=== PATIENT | male | born 1945 | race Hispanic/Latino ===

== ENCOUNTER 2019-08-12 23:23 | Inpatient (IN) | payer OTHER, MEDICAID ==
[~2019-08-12] VITALS: Ht 172.7 cm; Wt 90.7 kg
[2019-08-12] MEDS ORDERED: ELIQUIS2.5 MG PO (23:28)
[2019-08-12 23:35] VITALS: BP 156/74
--- NOTE | 2019-08-12 23:47 | Emergency Room Report ---
History of Present Illness General Chief Complaint: Chest Pain Source: Patient Present Illness HPI Is a 74-year-old male with history of CAD and CHF. He presents with complaint of chest pain. Onset of pain pressure is sharp-like in his left chest area. No radiation. No nausea no vomiting. Does feel short of breath. He was recently admitted and discharged from [place] last week for chest pain and CHF. He said that he had a stress test was negative. EMS gave him nitroglycerin and aspirin. He felt better after it. Denies any other complaint. No fever chills. Worse with exertion. Better with rest. Allergies: Coded Allergies: No Known Allergies (Unverified , 08/12/19) Patient History Past Medical History: see triage record, old chart reviewed, CAD, CHF Past Surgical History: other Pertinent Family History: none Social History: Denies: smoking Immunizations: other Reviewed Nursing Documentation: PMH: Agreed; PSxH: Agreed Nursing Documentation-PMH Past Medical History: No History, Except For Hx Hypertension: Yes Hx Diabetes: Yes Review of Systems Eye: Denies: eye pain, blurred vision ENT: Denies: ear pain, nose congestion, throat swelling Respiratory: Reports: shortness of breath; Denies: cough Cardiovascular: Reports: chest pain; Denies: palpitations Gastrointestinal: Denies: abdominal pain, diarrhea, nausea, vomiting Musculoskeletal: Denies: back pain, joint pain Skin: Denies: rash Neurological: Denies: headache, numbness Endocrine: Denies: increased thirst, increased urine Hematologic/Lymphatic: Denies: easy bruising All Other Systems: negative except mentioned in HPI Physical Exam Vital Signs Date Time Temp Pulse Resp B/P (MAP) Pulse Ox O2 Delivery O2 Flow Rate FiO2 08/12/19 23:23 98.4 86 18 156/74 (101) 100 Room Air Vitals with high blood pressure Sp02 EP Interpretation: reviewed, normal General Appearance: well appearing, no apparent distress, alert Head: normocephalic, atraumatic Eyes: bilateral eye PERRL, bilateral eye EOMI ENT: hearing grossly normal, normal pharynx Neck: full range of motion, supple, no meningismus Respiratory: chest non-tender, lungs clear, normal breath sounds Cardiovascular #1: regular rate, rhythm, no murmur Gastrointestinal: normal bowel sounds, non tender, no mass, no organomegaly, no bruit, non-distended Musculoskeletal: back normal, normal range of motion, other - 1+ pitting edema Psychiatric: mood/affect normal Procedures Critical Care Time Critical Care Time Critical care is mandated in this patient who presented with severe anemia requiring blood transfusion. Patient require my urgent intervention to attenuate the risks of metabolic collapse which may lead to cardiovascular collapse and . Critical care time is 35 minutes excluding any reportable procedure. Critical care time included evaluation, multiple reevaluation, looking at old charts, interpreting laboratory and diagnostic data, discussing case with patient and family and consultants, and charting. Medical Decision Making Diagnostic Impression: Primary Impression: Chest pain Qualified Codes: R07.9 - Chest pain, unspecified Additional Impressions: Acute exacerbation of CHF (congestive heart failure) Qualified Codes: I50.9 - Heart failure, unspecified Anemia Qualified Codes: D64.9 - Anemia, unspecified ER Course Patient presents with chest pain shortness of breath. He has CHF exacerbation. His pain and shortness of breath may be secondary to anemia also. First set of troponin negative. His BNP is elevated. Patient has multiple risk factor. He is pain-free at rest. I discussed the case with Dr. Harpreet Ellis who accepted the patient for transfer to [facility]. Unfortunately, patient unable to be transferred to [place] in a timely manner. Will admit the patient here and start blood transfusion. I discussed the case with Dr. Grove who will admit. EKG Diagnostic Results Rate: normal Rhythm: NSR ST Segments: other - Right bundle branch block Rhythm Strip Diag. Results EP Interpretation: yes Rate: 79 Rhythm: NSR, no PVC's, no ectopy Chest X-Ray Diagnostic Results Chest X-Ray Diagnostic Results : Chest X-Ray Ordered: Yes # of Views/Limited/Complete: 1 View Indication: Chest Pain EP Interpretation: Yes Interpretation: no consolidation, no effusion, no pneumothorax, other - CM Impression: No acute disease Electronically Signed by: Getachew Conte MD Last Vital Signs Date Time Temp Pulse Resp B/P (MAP) Pulse Ox O2 Delivery O2 Flow Rate FiO2 08/12/19 23:23 98.4 86 18 156/74 (101) 100 Room Air Status: improved Disposition: ADMITTED INPATIENT Condition: Serious Getachew Conte MD Aug 12, 2019 23:47
[2019-08-13 00:06] LABS: HEMATOCRIT 18.6 % (42.0-52.0); MEAN CORPUSCULAR VOLUME 90 FL (80-99); PLATELET COUNT 391 K/UL (150-450); RED BLOOD COUNT 2.07 M/UL (4.70-6.10); RED CELL DISTRIBUTION WIDTH 17.3 % (11.6-14.8); WHITE BLOOD COUNT 11.5 K/UL (4.8-10.8)
[2019-08-13 00:18] LABS: ANION GAP 8 mmol/L (5-15); BLOOD UREA NITROGEN 102 mg/dL (7-18); CALCIUM 8.1 MG/DL (8.5-10.1); CARBON DIOXIDE 28 MMOL/L (21-32); CHLORIDE 98 MMOL/L (98-107); CREATININE 5.6 MG/DL (0.55-1.30); POTASSIUM 3.8 MMOL/L (3.5-5.1); SODIUM 134 MMOL/L (136-145)
[2019-08-13 00:19] LABS: HEMOGLOBIN 6.4 G/DL (14.2-18.0)
[2019-08-13 00:29] LABS: ALANINE AMINOTRANSFERASE 37 U/L (12-78); ALBUMIN 3.1 G/DL (3.4-5.0); ALBUMIN/GLOBULIN RATIO 0.9 (1.0-2.7); ALKALINE PHOSPHATASE 44 U/L (46-116); ASPARTATE AMINO TRANSFERASE 48 U/L (15-37); BILIRUBIN,TOTAL 0.3 MG/DL (0.2-1.0)
--- NOTE | 2019-08-13 00:37 | Diagnostic Imaging Report ---
EXAM: XR Chest, 1 View CLINICAL HISTORY: SOB TECHNIQUE: Frontal view of the chest. COMPARISON: 11/15/12 FINDINGS: Study limited to a single portable AP projection. Borderline to mild cardiomegaly. Negative for focal parenchymal consolidation, pneumothorax or pleural fluid collections.
[2019-08-13 00:50] LABS: APPEARANCE,URINE CLEAR; BILIRUBIN, URINE NEGATIVE (NEGATIVE); COLOR,URINE PALE YELLOW; GLUCOSE, URINE (UA) 2+ (NEGATIVE); KETONES,URINE NEGATIVE (NEGATIVE); LEUKOCYTE ESTERASE ,URINE NEGATIVE (NEGATIVE); NITRITE,URINE NEGATIVE (NEGATIVE); PH,URINE 5 (4.5-8.0); PROTEIN,URINE 4+ (NEGATIVE); UROBILINOGEN,URINE NORMAL MG/DL (0.0-1.0)
[2019-08-13] MEDS ORDERED: ALLOPURINOL100 M1 ORAL (00:56)
[2019-08-13] MEDS ORDERED: OMEPRAZOLE40 M1 ORAL (00:56)
[2019-08-13] MEDS ORDERED: GLIMEPIRIDE4 MG ORAL (00:56)
[2019-08-13] MEDS ORDERED: LIPITOR10 MG ORAL (00:56)
[2019-08-13] MEDS ORDERED: AMLODIPINE BESYL5 MG ORAL (00:56)
[2019-08-13] MEDS ORDERED: HYDRALAZINE HCL25 M1 ORAL (00:56)
[2019-08-13] MEDS ORDERED: FUROSEMIDE80 M1 ORAL (00:56)
[2019-08-13] MEDS ORDERED: DIPHENHYDRAMINE25 M1 ORAL (00:56)
[2019-08-13] MEDS ORDERED: VASCEPA1 GM PO (00:56)
[2019-08-13] MEDS ORDERED: ASPIRIN EC81 MG ORAL (00:56)
[2019-08-13] MEDS ORDERED: DOXAZOSIN MESYLA4 MG ORAL (00:56)
[2019-08-13] MEDS ORDERED: FERROUS SULFAT325 MG ORAL (00:56)
[2019-08-13] MEDS ORDERED: GABAPENTIN100 MG ORAL (00:56)
[2019-08-13] MEDS ORDERED: FENOFIBRATE134 M1 ORAL (00:56)
[2019-08-13] MEDS ORDERED: METOPROLOL SUC100 MG ORAL (00:56)
[2019-08-13 01:12] VITALS: BP 146/78
[2019-08-13 02:32] VITALS: BP 135/70
[2019-08-13 03:17] VITALS: BP 118/58
[2019-08-13 04:15] VITALS: BP 125/58
[2019-08-13 04:50] VITALS: BP 128/59
[2019-08-13] MEDS ORDERED: LANTUS5 UNITS SUBQ (05:27)
[2019-08-13] MEDS ORDERED: LORazepam Inj 2mg/ml 1ml IV PRN (07:00)
[2019-08-13] MEDS ORDERED: Morphine Sulfate 2mg/ml Inj(IV/IM USE ONLY) IVP PRN (07:00)
[2019-08-13 08:00] VITALS: BP 145/69
[2019-08-13] MEDS ORDERED: Allopurinol 100mg Tab ORAL SCH (09:00)
[2019-08-13] MEDS ORDERED: HydrALAZINE 25mg tab ORAL SCH (09:00)
[2019-08-13] MEDS ORDERED: Metoprolol Succinate XL 100mg tab ORAL SCH (09:00)
[2019-08-13] MEDS ORDERED: NovoLOG Insulin Flexpen SUBQ SCH (11:30)
--- NOTE | 2019-08-13 15:00 | History and Physical Report ---
DATE OF ADMISSION: 08/13/2019 TIME SEEN: 8 a.m. MENTAL RETARDATION AIDE: 1. Urszula Paula M.D. 2. Eitan Deutsch M.D. 3. Tulio Angeles M.D. CHIEF COMPLAINT: Chest pain and renal failure. BRIEF HISTORY: This is a 74-year-old male, who lives at home, who presents with one-day increased chest pain, was twitching like. He was slightly weak. No loss of consciousness. No shortness of breath. It radiated to left arm. The patient came to [facility], diagnosed with the above. Also anemia of 6.4 and renal failure, admitted to telemetry for further care. Currently, calm, in bed. No complaint otherwise. REVIEW OF SYSTEMS: Slight chest pain. No shortness of breath. No nausea, vomiting, or diarrhea. PAST MEDICAL HISTORY: Includes CHF, renal failure, AFib, and diabetes. PAST SURGICAL HISTORY: None. ALLERGIES: Denies. MEDICATIONS: Include zolpidem, insulin, allopurinol, amlodipine, pantoprazole, hydralazine, morphine, Zofran, and lorazepam. SOCIAL HISTORY: No smoking. No alcohol. No intravenous drug abuse. FAMILY HISTORY: Noncontributory. PHYSICAL EXAMINATION: GENERAL: Calm in bed, oriented x2, in no acute distress. VITAL SIGNS: Temperature is 97 degrees, pulse 66, respirations 18, and blood pressure 120/59. CARDIOVASCULAR: No murmur. LUNGS: Distant and clear. ABDOMEN: Bowel sounds positive. Soft, nontender, and nondistended. EXTREMITIES: Show no cyanosis, clubbing, or edema. NEUROLOGIC: The patient moves all extremities, slightly weak. LABORATORY AND DIAGNOSTIC DATA: Labs at this time show white count 11.5, H and H of 6.4/18, and platelets 391,000. BMP shows sodium 134, BUN and creatinine 102/5.6. Glucose 189. Troponin 0.018. BNP is 2438. Albumin 3.1. Urinalysis, 4+ protein, 2+ glucose. ASSESSMENT: 1. Chest pain. 2. Anemia. 3. Renal failure. 4. Congestive heart failure. 5. Diabetes. 6. Atrial fibrillation. 7. Malnutrition. PLAN: 1. Transfuse as needed. 2. Pain control. 3. Nephrology followup. 4. Blood pressure and blood sugar control. 5. Dietary followup. 6. PT and dietary evaluation. 7. CBC and BMP in the morning. 8. Continue to follow the patient. Po Grove D.O. DR: CANDY JOB#: [id number] CC:
[2019-08-13] MEDS ORDERED: Miralax 17gm pkt ORAL PRN (21:00)
[2019-08-13] MEDS ORDERED: Zolpidem 5mg tab ORAL PRN (21:00)
--- NOTE | 2019-08-14 14:06 | Discharge Summary ---
Discharge Summary Discharge Summary _ DATE OF ADMISSION: 08/13/2019 DATE OF DISCHARGE: 08/13/2019 DISCHARGED BY: REASON FOR ADMISSION: 74 years old male with past medical history of coronary artery disease, hypertension, diabetes mellitus, and congestive heart failure , presented with complaint of chest pain with associated shortness of breath.. Patient reported pressure-like sharp pain in left chest area. No radiation. Per patient, symptoms worse with exertion and better with rest. No nausea or vomiting. Patient was recently hospitalized at [facility] for chest pain and congestive heart failure. According to patient stress test was negative. Paramedics gave patient nitroglycerin and aspirin. Patient felt better afterwards. Upon evaluation vital signs were stable. Laboratory work-up revealed mild leukocytosis with WBC 11.5 , hemoglobin 6.4, hematocrit 18.6, blood count 391. Troponin negative. Pro BNP 2438. BUN 102, creatinine 5.6. Glucose 189 . Calcium 8.1 . Albumin 3.1 . Urinalysis revealed no evidence of urinary tract infection , +4 protein, +2 glucose. EKG revealed sinus rhythm, no acute ischemic changes. Chest x-ray revealed cardiomegaly , but no acute cardiopulmonary pathology. Chest pain with shortness of breath were possibly due to acute anemia as per ED physician. Case was discussed with Dr. Harpreet Ellis, who accepted patient for transfer to [facility]. Patient was unable to be transferred to [facility] in timely manner. Patient subsequently admitted to telemetry floor and started on the blood transfusion. HOSPITAL COURSE: Patient admitted to telemetry floor. Home medication resumed. Patient received 1 dose of diuretics . Pain management was addressed as needed. Patient was on beta-nancy, hydralazine and calcium channel nancy for blood pressure control. Telemetry was noted with atrial fibrillation with controlled ventricular response with bundle branch block . Patient spontaneously converted to sinus rhythm. Nephrology consult was requested due to acute renal failure. Dietary evaluation was requested. Fall precaution maintained. Physical therapy evaluation was requested. Bed became available at [facility]. Patient subsequently was transferred via ambulance for further evaluation and management as per insurance . FINAL DIAGNOSES: Chest pain Acute anemia requiring blood transfusion Renal failure Congestive heart failure Diabetes mellitus Atrial fibrillation- spontaneously converted to sinus rhythm Malnutrition DISCHARGE MEDICATIONS: See Medication Reconciliation list. DISCHARGE INSTRUCTIONS: Patient was transferred to [facility] as per insurance. I have been assigned to dictate discharge summary for this account. I was not involved in the patient's management. Jeniffer Rivera NP Aug 14, 2019 14:06
== END 2019-08-13 08:57 | disposition short-term general hospital (02) | DRG 812 ==
LOC: EDBD 23:23 → EMR 23:50 → 2E 08-13 03:00 → EDBEDREQ 08-13 03:07
DX: D64.9 Anemia, unspecified (principal); N17.9 Acute kidney failure, unspecified; I13.0 Hypertensive heart and chronic kidney disease with heart failure and stage 1 through stage 4 chronic kidney disease, or unspecified chronic kidney disease; E46 Unspecified protein-calorie malnutrition; E11.22 Type 2 diabetes mellitus with diabetic chronic kidney disease; N18.9 Chronic kidney disease, unspecified; I50.9 Heart failure, unspecified; I48.91 Unspecified atrial fibrillation; I25.10 Atherosclerotic heart disease of native coronary artery without angina pectoris; Z68.30 Body mass index [BMI] 30.0-30.9, adult
CPT/HCPCS: 36415; 71045; 80053; 81003; 83880; 84484; 85007; 85025; 86850; 86900; 86901; 86920; 93005; 96374; 99291; J1815

== ENCOUNTER 2020-04-20 01:38 | Emergency (ER) | payer OTHER, MEDICAID ==
[~2020-04-20] VITALS: Ht 172.7 cm; Wt 68.0 kg
[~2020-04-20 01:38] MED LIST: ALLOPURINOL100 M1 ORAL; AMLODIPINE BESYL5 MG ORAL; ASPIRIN EC81 MG ORAL; DIPHENHYDRAMINE25 M1 ORAL; DOXAZOSIN MESYLA4 MG ORAL; ELIQUIS2.5 MG PO; FENOFIBRATE134 M1 ORAL; FERROUS SULFAT325 MG ORAL; FUROSEMIDE80 M1 ORAL; GABAPENTIN100 MG ORAL; GLIMEPIRIDE4 MG ORAL; HYDRALAZINE HCL25 M1 ORAL; LANTUS5 UNITS SUBQ; LIPITOR10 MG ORAL; METOPROLOL SUC100 MG ORAL; OMEPRAZOLE40 M1 ORAL; VASCEPA1 GM PO
[2020-04-20] MEDS ORDERED: ELIQUIS2.5 MG PO (01:45)
--- NOTE | 2020-04-20 01:47 | Emergency Room Report ---
History of Present Illness General Chief Complaint: Male Urogenital Problems Source: Patient Present Illness HPI This is a 74-year-old male with a history of renal failure on hemodialysis. His normal dialysis days are Wednesday, Wednesday, and Wednesday. He had dialysis done on because today he had a left arm AV fistula placed. He presents with chief complaint of urinary retention. Ever since his surgery, he has not been able to urinate. He said he felt pressure and pain. He normally able to urinate even on dialysis. He denies any fever chills but no nausea no vomiting. No fever chills. Denies any other complaint. He did get general anesthesia today. Allergies: Coded Allergies: No Known Allergies (Unverified , 08/12/19) COVID-19 Screening Contact w/high risk pt: No Experienced COVID-19 symptoms?: No COVID-19 Testing performed SECOND BUTLER: No Patient History Past Medical History: see triage record, old chart reviewed, HTN, renal disease , dialysis Past Surgical History: other Pertinent Family History: none Social History: Denies: smoking Immunizations: other Reviewed Nursing Documentation: PMH: Agreed; PSxH: Agreed Nursing Documentation-PMH Past Medical History: No History, Except For Hx Cardiac Problems: Yes - esrd Hx Hypertension: Yes Hx Diabetes: Yes Hx Cancer: No Hx Gastrointestinal Problems: No Hx Neurological Problems: No Review of Systems Eye: Denies: eye pain, blurred vision ENT: Denies: ear pain, nose congestion, throat swelling Respiratory: Denies: cough, shortness of breath Cardiovascular: Denies: chest pain, palpitations Gastrointestinal: Denies: abdominal pain, diarrhea, nausea, vomiting Genitourinary: Reports: retention Musculoskeletal: Denies: back pain, joint pain Skin: Denies: rash Neurological: Denies: headache, numbness Endocrine: Denies: increased thirst, increased urine Hematologic/Lymphatic: Denies: easy bruising All Other Systems: negative except mentioned in HPI Physical Exam Vital Signs Date Time Temp Pulse Resp B/P (MAP) Pulse Ox O2 Delivery O2 Flow Rate FiO2 04/20/20 01:41 97.9 75 18 182/78 (112) 94 Room Air Vitals with high blood pressure Sp02 EP Interpretation: reviewed, normal General Appearance: well appearing, no apparent distress, alert Head: normocephalic, atraumatic Eyes: bilateral eye PERRL, bilateral eye EOMI ENT: hearing grossly normal, normal pharynx Neck: full range of motion, supple, no meningismus Respiratory: chest non-tender, lungs clear, normal breath sounds Cardiovascular #1: regular rate, rhythm, no murmur Gastrointestinal: normal bowel sounds, non tender, no mass, no organomegaly, no bruit, non-distended, other - distended bladder Musculoskeletal: back normal, normal range of motion, gait/station normal Psychiatric: mood/affect normal Medical Decision Making Diagnostic Impression: Primary Impression: Acute urinary retention Additional Impression: Hypertension Qualified Codes: I10 - Essential (primary) hypertension ER Course Presents with acute urinary retention. Is probably secondary to anesthesia from his AV fistula surgery. BP improved after Cabral placed. No evidence of fever or chills. No evidence of UTI. Cabral only have about 250 cc urine output. He said he felt better however. Because of the small amount, I will remove the Cabral. Last Vital Signs Date Time Temp Pulse Resp B/P (MAP) Pulse Ox O2 Delivery O2 Flow Rate FiO2 04/20/20 01:41 97.9 75 18 182/78 (112) 94 Room Air Status: improved Disposition: HOME, SELF-CARE Condition: Stable Additional Instructions: Follow-up with your doctor in 2 to 3 days if not better. Return if symptoms worsen. Getachew Conte MD Apr 20, 2020 01:47
[2020-04-20 01:50] VITALS: BP 163/80
--- NOTE | 2020-04-20 01:50 | NUR ---
ED Nurse Note: Pt brought into ED from home by [facility] for c/o urinary retention x 2 days. Pt states he had shunt placed for dialysis on L upper arm on thursday 04/19 and was not able to urinate after surgery. Pt reports pain and pressure in lower abdomen. He is aaox4, breathing is normal and unlabored, NAD. Pt is ambulatory with steady gait.
--- NOTE | 2020-04-20 02:10 | NUR ---
ED Nurse Note: Pt notes instant relief of pressure in lower abdomen after levy insertion. Approx 300cc output noted at this time.
--- NOTE | 2020-04-20 02:30 | NUR ---
ED Nurse Note: Cabral removed before discharge.
[2020-04-20 02:35] VITALS: BP 140/88
--- NOTE | 2020-04-20 02:35 | NUR ---
ER DISCHARGE NOTE: Patient is cleared to be discharged per ERMD, pt is aox4, on room air, with stable vital signs. pt was given dc instructions, pt was able to verbalize understanding, pt id band removed. pt is able to ambulate with steady gait. pt took all belongings.
== END 2020-04-20 02:35 | disposition home or self-care (01) ==
LOC: EDBD 01:38 → EMR 01:59
DX: R33.9 Retention of urine, unspecified (principal); I12.0 Hypertensive chronic kidney disease with stage 5 chronic kidney disease or end stage renal disease; E11.22 Type 2 diabetes mellitus with diabetic chronic kidney disease; N18.6 End stage renal disease; Z91.15 Patient's noncompliance with renal dialysis
CPT/HCPCS: 51701; 99283; 99284